=== PATIENT | female | born 1985 | race Asian ===

== ENCOUNTER 2020-06-27 20:57 | Emergency (ER) | payer OTHER ==
[~2020-06-27] VITALS: Ht 162.6 cm; Wt 72.6 kg
--- NOTE | 2020-06-27 21:05 | NUR ---
THE PATIENT IS BIB HER . THE PATIENT IS ALERT AND ORIENTED X4. PATIENT C/O L SIDED CP AND L ARM TINGLING SENSATION, AND EPISODES OF SOB AND DIZZINESS SINCE NOON TIME TODAY. THE PATIENT RATES HER CHEST PAIN 8/10. PATIENT IS PLACED ON A MONITOR. PROVIDED WITH A WARM BLANKET. WILL CONTINUE TO MONITOR THE PATIENT.
[2020-06-27] MEDS ORDERED: LORAZEPAM 1 MG TABLET ONE (21:52)
[2020-06-27] MEDS ORDERED: LORAZEPAM 1 MG TABLET PO ONE (22:00)
--- NOTE | 2020-06-27 22:58 | NUR ---
THE PATIENT RESTING. DENIES ANY DISCOMFORT AT THIS TIME.
[2020-06-27] MEDS ORDERED: LORA-259 PO (23:05)
--- NOTE | 2020-06-27 23:17 | NUR ---
Patient alert and oriented x4. Denies pain or any discomfort. Respiration regular and unlabored. Denies SOB. Patient discharged to home in stable condition. Written and verbal after care instructions given. Patient verbalizes understanding of instruction. The patient left ER in stable condition.
[2020-06-27 23:18] VITALS: BP 123/75
== END 2020-06-27 23:19 | disposition home or self-care (01) ==
LOC: ER 21:00
DX: F41.0 Panic disorder [episodic paroxysmal anxiety] (principal); R45.86 Emotional lability; R00.0 Tachycardia, unspecified